=== PATIENT | male | born 1975 | race Two or more races ===

== ENCOUNTER 2025-06-11 09:17 | Emergency (ER) | payer MEDICAID, SELFPAY ==
[2025-06-11 09:31] VITALS: BP 137/77; PULSE 68; RESP 18; TEMP 36.9; O2SAT 99; BMI 25.8
--- NOTE | 2025-06-11 09:33 | XR_ITS ---
Examination: Knee, left , 3 views Technique: Knee AP, lateral, oblique 3 views Date and time of exam: June 11, 2025 0940 hours INDICATIONS: Left knee swelling and pain beginning 3 days ago. FINDINGS: No fracture or dislocation. Small knee effusion No foreign body IMPRESSION: No fracture or dislocation. Small knee effusion is
[2025-06-11] MEDS: KETOROLAC INJ 60 MG/2 ML VIAL 30 MG IM (09:52)
[2025-06-11 10:13] LABS: Uric Acid 6.9 mg/dL (3.7-9.2)
--- NOTE | 2025-06-11 10:20 | PD.EDLOWEX ---
Lower Extremity Injury RME/HPI General Chief Complaint: Extremity Injury, Lower Stated Complaint: LEFT KNEE SWELLING/PAIN X MONDAY Time Seen by Provider: 06/11/25 09:23 Arrival date/time: 06/11/25 09:17 49-year-old male with no known injury presents for concerns for left knee pain patient reports swelling to the left knee ongoing since Monday Limitations: no limitations Related Data Previous Rx's ?Medication ?Instructions ?Recorded naproxen 500 mg tablet 500 mg PO BID #60 tabs 06/19/21 naproxen 500 mg tablet 500 mg PO BID PRN pain #20 tabs 01/21/23 ibuprofen 800 mg tablet 800 mg PO TID PRN pain #30 tabs 09/21/23 ibuprofen 800 mg tablet 800 mg PO TID PRN pain #30 tabs 06/11/25 Allergies Allergy/AdvReac Type Severity Reaction Status Date / Time No Known Allergies Allergy Verified 06/11/25 09:22 Review of Systems Review of Systems Systems Reviewed: All systems reviewed, normal except as documented Constitutional Constitutional: Reports system reviewed and no additional complaints, except as documented, Denies fever(s) and Denies headache(s) Eyes Eyes: Reports system reviewed and no additional complaints, except as documented and Denies blurry vision ENT Ears, Nose, Mouth, and Throat: Reports system reviewed and no additional complaints, except as documented, Denies headache(s), Denies nasal congestion and Denies nasal discharge Cardiovascular Cardiovascular: Reports system reviewed and no additional complaints, except as documented, Denies chest pain and Denies dyspnea Respiratory Respiratory: Reports system reviewed and no additional complaints, except as documented, Denies chest congestion, Denies cough and Denies dyspnea Gastrointestinal Gastrointestinal: Reports system reviewed and no additional complaints, except as documented and Denies abdominal pain Musculoskeletal Musculoskeletal: Reports system reviewed and no additional complaints, except as documented, Reports arthralgias, Denies deformity, Reports joint swelling, Denies numbness, Reports stiffness and Denies tingling Integumentary/Breasts Skin/Breast: Reports system reviewed and no additional complaints, except as documented and Denies rash Neurologic Neurologic: Reports system reviewed and no additional complaints, except as documented, Reports as per HPI, Denies headache(s), Denies numbness and Denies tingling Past Medical History Past Medical History CARDIAC: Negative Congestive Heart Failure RESPIRATORY: Negative Chronic Obstructive Pulmonary Disease (COPD) GENITOURINARY: Negative Renal Disease ENDOCRINE: Negative Diabetes Mellitus Type 1 or Diabetes Mellitus Type 2 Social History SMOKING STATUS: Never smoker ED Exam General Limitations: Present no limitations General appearance: Present alert and in no apparent distress Head Head exam: Present atraumatic Eye Eye exam: Present normal appearance, PERRL and EOMI ENT ENT exam: Present normal exam, normal oropharynx and mucous membranes moist Neck Neck exam: Present normal inspection, full ROM and trachea midline Chest Chest inspection: Present normal inspection and symmetric chest wall rise Respiratory Respiratory exam: Present normal lung sounds bilaterally Cardiovascular Cardiovascular exam: Present regular rate, normal rhythm and normal heart sounds Abdominal Exam Abdominal exam: Present soft and normal bowel sounds Extremities Exam Extremities exam: Present normal inspection and full ROM Back Exam Back exam: Present normal inspection and full ROM Neurological Exam Neurological exam: Present alert, oriented X3, CN II-XII intact, normal gait and reflexes normal; Absent motor sensory deficit Psychiatric Psychiatric exam: Present normal affect and normal mood Skin Skin exam: Present warm, dry, intact and normal color; Absent rash Course Quality Measures none Orders Category Date Time Status XR knee LT 3V Stat Exams 06/11/25 09:33 Completed Uric Acid Stat Lab 06/11/25 09:50 Completed Ketorolac Inj [Toradol Inj] Med 06/11/25 09:33 Discontinued 30 mg IM X1 ONE Vital Signs Vital signs: Vital Signs Temperature 98.5 F 06/11/25 09:31 Pulse Rate 68 06/11/25 09:31 Respiratory Rate 18 06/11/25 09:31 Blood Pressure 137/77 H 06/11/25 09:31 Pulse Oximetry (%) 99 06/11/25 09:31 Oxygen Delivery Method Room Air 06/11/25 09:31 O2 saturation 99% room air with normal limits Extremity Injury, Lower MDM Narrative MDM Narrative:: 49-year-old male with no known injury presents for concerns for left knee pain patient reports swelling to the left knee ongoing since Monday On exam patient with apparent patient does not appear ill or toxic in no acute distress On exam patient has no significant swelling noted no redness warmth no evidence of infection Uric acid obtained which is negative X-ray obtained no acute fracture dislocation noted Patient placed Joaquín wrap given crutches Patient given pain medication here Patient discharged home in no distress to follow-up with primary care doctor in the next 24 to 48 hours and for any worsening symptoms to return to the ER immediately Patient data [place] [facility] [place] Clinical information provided by:: patient Social determinants that could affect healthcare access:: none Patient has the following chronic illnesses:: See history How is presenting disease/condition affected by chronic disease/condition?: uneffected by Evaluation data The following diagnostics were reviewed and interpreted by me:: radiology exam(s) Lab and/or radiology exams considered but not ordered:: Radiology obtain Interpretation Summary: Reviewed by me Medications / Prescriptions Medications or Prescriptions considered but not ordered:: Given Medication administrations:: Medication Administration History Discontinued Medications Ketorolac Tromethamine (Ketorolac Inj 60 Mg/2 Ml Vial) 30 mg IM X1 ONE Stop: 06/11/25 09:34 Last Admin: 06/11/25 09:52 Dose: 30 mg Documented By: Given Consultations Consultation(s) initiated? (list below): No Diagnosis Extremity Injury, Lower Differential Diagnosis: acute internal derangement of knee and other Most likely diagnosis given after review of the tests above:: Knee sprain Admission Indicated Admission indicated?: not indicated Admission Request Was there a request for admission?: No Disposition Plan Disposition Plan: Discharge Discharge Attestation Discharge Attestation: The patient and all family members were given an opportunity to ask questions and understood the discharge instructions. Discharge instructions specifically effects, indications for sooner follow up or return to the emergency department, and the expected course of current diagnosis. Patient condition: Stable Discharge Plan Plan Patient Disposition: HOME (Self Care) Discharge Disposition comment: Stable Prescriptions/Referrals Prescriptions/Med Rec: New ibuprofen 800 mg tablet 800 mg PO TID PRN (Reason: pain) Qty: 30 0RF No Action naproxen 500 mg tablet 500 mg PO BID Qty: 60 0RF naproxen 500 mg tablet 500 mg PO BID PRN (Reason: pain) Qty: 20 0RF ibuprofen 800 mg tablet 800 mg PO TID PRN (Reason: pain) Qty: 30 0RF Referrals: Faby Flores PA-C [Primary Care Provider] - 06/12/25 Problem List Clinical Impression: Acute internal derangement of knee Patient/Caregiver Discharge Instructions Education Materials: How Your Knee Works Additional Instructions: Please follow up with your primary care doctor in the next 24-48hrs for any worsening symptoms return here immediately If your pain persists or worsens you will need an outpatient MRI for further evaluation Print Language: Kyrgyz Stand Alone Forms: Josseline Award Info., Work/School Release, Patient Portal Info Letter PA/ECHOCARDIOGRAPH TECH Supervising Physician PA/ECHOCARDIOGRAPH TECH Supervising Physician: Dr. ngo
== END 2025-06-11 10:55 | disposition home or self-care (01) ==
PROVIDERS: Emergency Provider Nurse Practitioner Primary Care; PCP Physician Assistant
DX: M23.92 Unspecified internal derangement of left knee (principal)
CPT/HCPCS: 36415; 73562; 84550; 96372; 99283; J1885